=== PATIENT | female | born 2000 | race Caucasian/White ===

== ENCOUNTER 2023-12-22 14:04 | Outpatient (AMB) | payer OTHER, SELFPAY ==
--- NOTE | 2023-12-22 14:13 | MHC.OFFVIS ---
Vital Signs 12/22/23 14:20 Height 5 ft Weight 127 lb 2 oz BMI 24.8 BP 133/89 Blood Pressure Location Lt brachial Position Sitting Pulse 80 Intake Visit Reasons: (R) Breast density Intake Note: Patient is seen in office for evaluation and treatment of right breast density. Pt c/o: notice a lump on the right breast couple months, denies pain, increase/decrease, discharge, redness, discoloration, had similar lump on the left side had bx done it was benign us b:12/16/23 ([facility]) Supervisor Cabinetmaker Required: No Accompanied by: Self / Same As Patient Allergies No Known Allergies Allergy (Verified 12/22/23 14:15) Medication List - Last Reconciled 12/22/23 by Irvin Moser MD No Known Home Meds HPI Comments Details: 23-year-old female patient presenting for evaluation of a right breast lump noted on self examination. She has a previous history of a left breast lump which was biopsied several years ago by ultrasound. This revealed a benign fibroadenoma. The current lump has a similar feel and is located at 11:00 o'clock position, 2 cm from the nipple in his felt to be mobile. She denies any pain, skin change, nipple discharge or other symptoms related to this lump. She continues to feel the lump on the left breast as well which has not changed significantly. Her family history is significant for her mom having multiple breast lumps all of which were benign. She reports a maternal aunt was diagnosed with breast cancer and subsequently required a mastectomy. She was approximately 49 years old the diagnosis. Her menarche was the age of 11; she is G0. [facility] Family History Paternal Grandmother Leukemia Maternal Grandmother Lung cancer Maternal Aunt Breast cancer, Onset Age: 50 Social History Alcohol intake: current Patient Tobacco Use Status: Never used Tobacco Female Reproductive History Menstrual Age of Menarche: 11 Date of last menstrual period: 12/08/23 Total pregnancies: 0 Review of Systems Const All systems reviewed & are unremarkable except as noted in HPI and below Physical Exam Vital Signs: Last Vital Signs Pulse 80 12/22/23 14:20 BP 133/89 12/22/23 14:20 BMI result Body Mass Index 24.8 Const General: cooperative and no acute distress Nutritional Appearance: well nourished Orientation/consciousness: patient oriented x3 Limitations: no limitations HEENT Head: Yes normocephalic and Yes atraumatic Ears: hearing grossly normal bilaterally Chest Other: Left breast: No skin change, no nipple retraction, no nipple discharge, palpable mass in the 06:00 o'clock location, mobile within the breast tissue consistent with a fibroadenoma, no enlarged lymph nodes. Right breast: No skin change, no nipple retraction, no nipple discharge, palpable mass in the 11 o'clock position, 2 cm from the nipple, a proximally 1 cm in diameter. The lesion is mobile within the breast tissue with no overlying skin change. No enlarged lymph nodes Chest/axillae images: 1. Palpable mass right breast 11:00 o'clock Resp Effort & Inspection: normal respiratory effort, no audible wheezes, no cough and no respiratory distress Cardio Jugular venous distension: no JVD GI Inspection: Yes normal to inspection Skin Other: Warm, dry, no rash Neuro General: patient oriented x3 Extrem General: Yes no clubbing, cyanosis or edema Assessment & Plan Assessment & Plan (1) Abnormal ultrasound of breast: Code(s): R92.8 - Other abnormal and inconclusive findings on diagnostic imaging of breast Category: Medical Plan 23-year-old female presenting with a previous history of fibroadenoma of the left breast now with a new palpable mass in the right breast as noted above. On examination of the lump does appear to be consistent with a fibroadenoma. I recommended a right breast ultrasound-guided core biopsy. [facility] She will return following the procedure to review the pathology results and discuss treatment options. She is welcome to call sooner for any new concerns. Orders: Orders US breast ndl core biopsy RT Today R92.8 - Other abnormal and inconclusive findings on diagnostic imaging of breast Coding Level of Care Code New Pt Level 4 (67815) Diagnoses Abnormal ultrasound of breast R92.8
[2023-12-22 14:20] VITALS: BP 133/89; PULSE 80; BMI 24.8
== END 2023-12-22 14:30 | disposition home or self-care (01) ==
PROVIDERS: PCP Physician Assistant; Visit Provider Surgery
DX: R92.8 Other abnormal and inconclusive findings on diagnostic imaging of breast (principal)
CPT/HCPCS: 99204

== ENCOUNTER → 2023-12-22 14:04 | Outpatient (BNVA) | payer OTHER, SELFPAY | PROVIDERS: PCP Physician Assistant; Visit Provider Surgery ==

== ENCOUNTER 2024-01-13 07:53 | Outpatient (REF) | payer OTHER, SELFPAY ==
--- NOTE | ~2024-01-13 | US_ITS ---
PROCEDURE: US GUIDED BREAST BIOPSY, RIGHT CLINICAL INFORMATION: Oval mass right breast 11:00 axis, 2 cm from the nipple, probable fibroadenoma, recommended for biopsy. COMPARISON: 09/01/2023 right breast ultrasound at [facility]. PROCEDURAL DETAILS: The details of the procedure, as well as the risks, benefits, and alternatives to the procedure were explained to the patient in detail and all of her questions were answered, after which written informed consent was obtained. Site and side were confirmed. Prior to the procedure, sonography revealed an oval hypoechoic lobular mass measuring 0.9 x 0.5 x 1.2 cm 11:00 axis right breast, 2 cm from the nipple.. A time-out was performed, the lesion intended for biopsy was targeted, and the overlying skin of the right breast was then marked, prepped and draped in the usual sterile fashion. Using sonographic guidance, sterile technique, and 1% lidocaine without epinephrine for local anesthesia, multiple core biopsies were obtained through the targeted area with a 14G spring loaded Letsgofordinnerera core biopsy device. There was real-time confirmation of appropriate needle passage. Sampling was documented. At the completion of tissue sampling, a single open coil metallic clip was deposited at the biopsy site. There was no evidence of immediate complication. SPECIMEN: 3 well formed core samples were obtained DIGITAL POST-PROCEDURE MAMMOGRAPHY: -Not performed due to patient age. Clip appears well situated on within the lesion on ultrasound. US/US breast ndl core biopsy RT IMPRESSION: 1. No immediate complication from ultrasound-guided percutaneous biopsy right breast 11:00 axis oval mass. 2. Ultrasound was used to localize and guide marker clip placement. 3. Final pathology results are pending. A separate report with final recommendations will be issued once these results are made available.
[2024-01-13] MEDS: Lidocaine HCl 1 % 20 ML VIAL 9 ML SUBCUT (09:05)
[2024-01-13] MEDS: Sodium Bicarbonate 8.4% 50 MEQ/50 ML VIAL SUBCUT (09:05)
== END 2024-01-13 07:54 | disposition home or self-care (01) ==
LOC: HO.MAMMO 07:53
PROVIDERS: PCP Physician Assistant; Visit Provider Surgery
DX: D24.1 Benign neoplasm of right breast (principal)
CPT/HCPCS: 19083; 88305; A4648; C1894

== ENCOUNTER → 2024-01-13 08:00 | Outpatient (BNV) | payer OTHER, SELFPAY | PROVIDERS: PCP Physician Assistant; Visit Provider Radiology Diagnostic Radiology | DX: N63.11 Unspecified lump in the right breast, upper outer quadrant (principal) | CPT/HCPCS: 19083 ==

== ENCOUNTER 2024-08-19 07:41 | Outpatient (AMB) | payer OTHER, SELFPAY ==
--- OUTSIDE RECORDS SUMMARY | 2024-08-19 07:43 | XMS_ITS | Clinical Summary ---
Author Organization [facility] Address [address] [facility] [place] [address] Care Team Providers Care Land Surveyor Manager Name Role Phone Unavailable Primary Care Provider Unavailabl e Social History Tobacco Use Types Packs/Day Years Used Date Smoking Tobacco: Never Assessed Comments Unknown Sex and Gender Information Value Date Recorded Sex Assigned at Not on file Legal Sex Female 10:00 AM EST Gender Identity Not on file Sexual Orientation Not on file Plan of Treatment Health Maintenance Due Date Last Done Comments Depression: Screening Annual ly using PHQ-2/9 in Adults 18 yrs or above (or HM Modifier)([facility]) 2018 Hepatitis C Virus Infection in Adolescents and Adults: Screening (or Modifier) ([facility]) 2018 SDOH Screening Reminder: Ellie pineda for all adults ([facility]) 2018 Tobacco Smoking Cessation: i n Adults excluding Women: Behavioral and Pharmacotherapy Interventions ([facility]) 2018 DTaP/Tdap/Td Vaccines ([facility]) (1 - Tdap) 2019 Lipid Screening: Once for Wo men aged 20 to 45 yrs ([facility]) 2020 Cervical Cancer Screenin 1-65 yrs of age (or Modifier) 2021 Cervical Cancer Screening: P ap every 3 yrs pts age 21-65 2021 Cervical Cancer: Pap Screeni ng with Modifier timing ([facility]) 2021 Cervical Cancer: hrHPV alone or with cotesting Pap for Pts 30-65yrs screening every 5yrs ([facility]) 2021 Flu Vaccination: Yearly for ages 18mos through 64 years (or Modifier)([facility]) 01/28/2024 COVID-19 Vaccine Screening: Initial Series and Booster Status ([facility]) (2023- season) 2024 Zoster/Shingles Vaccine Seri es Screening: Adults aged 18+ yrs (or HM Modifiers)([facility]) (1 of 2) 2050 Pneumococcal Vaccination Scr eening: Pts 0-19 & 19-64 yrs of age ([facility]) Aged Out No longer eligible based on patient's age to complete this topic Medical Devices Not on file
[2024-08-19 07:55] VITALS: BP 110/62; PULSE 78; O2SAT 98; BMI 25.8
--- NOTE | 2024-08-19 07:55 | A.OFFPC_ITS ---
Vital Signs 08/19/24 07:55 Height 5 ft Weight 132 lb BMI 25.8 BP 110/62 Blood Pressure Location Lt brachial Position Sitting Pulse 78 Pulse Source Pulse Oximeter Pulse Oximetry (%) 98 Oxygen Delivery Method Room Air Intake Visit Reasons: establish care Signal Circuit Designer Required: No Allergies No Known Allergies Allergy (Verified 08/19/24 08:10) Medication List - Last Reconciled 08/19/24 by Yanni Villalba PA-C No Known Home Meds Tobacco use date assessed: 08/19/24 Dental Screening Dental Screen Date: 08/19/24 Did you have a dental visit in the last 12 months?: Yes Did you have a dental problem in the last 6 months where you did not have access to dental care?: No Was dental information given to patient?: Patient has dentist HPI establish care HPI Details 24-year-old female coming to the office for the 1st time. In review of the notes, patient had abdominal ultrasound of the breast an appointment with General surgery 12/22/2023 who recommended core biopsy. Biopsy was completed 12/2023 determined to fibroadenoma no evidence of malignancy. She has a history of a benign breast lump following an abnormal ultrasound and biopsy conducted approximately a year ago is noted. The lump persists without associated pain. She has perioral dermatitis managed previously with doxycycline and is to follow up with her nipple threader. The patient denies any history of significant medical conditions such as asthma, hypertension, or diabetes. [facility] Family History Paternal Grandmother Leukemia Maternal Grandmother Lung cancer Maternal Aunt Breast cancer, Onset Age: 50 Mother No problems noted. Father No problems noted. Sister No problems noted. Social History Housing: Other Housing Other:: Home with parents Alcohol intake: current Patient Tobacco Use Status: Never used Tobacco Tobacco use type: Cigarette e-Cigarette/Vaping Use: Never Used Second Hand Smoke Exposure: No Current occupational status: employed Current occupation: Marketing Cognitive needs: No Hearing needs: No Vision needs: No Female Reproductive History Menstrual Age of Menarche: 11 control method: none Total pregnancies: 0 History of abnormal pap smear: No Questionnaire PHQ-9 Over the last 2 weeks, how often have you been bothered by any of the following problems? 1. Little interest or pleasure in doing things: not at all 2. Feeling down, depressed, or hopeless: not at all 3. Trouble falling or staying asleep, or sleeping too much: not at all 4. Feeling tired or having little energy: not at all 5. Poor appetite or overeating: not at all 6. Feeling bad about yourself - or that you are a failure or have let yourself or your family down: not at all 7. Trouble concentrating on things, such as reading the newspaper or watching television: not at all 8. Moving or speaking so slowly that other people could have noticed. Or the opposite - being so fidgety or restless that you have been moving around a lot more than usual: not at all 9. Thoughts that you would be better off or of hurting yourself in some way: not at all Total score: 0 Depression Screening Interpretation: Negative Depression Screening Done: Yes 07328 - PHQ-9 Billing: Yes Source: Developed by Drs. Dickson Fuentes, Maite Galan, Nabeel Beckman and colleagues, with an educational fran from [employer]. Thrive Questionnaire Date Thrive assessed: 08/19/24 I am a: Patient What is your living situation today?: I have a steady place to live Within the past 12 months, did the food you bought not last and you didn't have the money to get more?: Never true Within the past 12 months, did you worry whether your food would run out before you got money to buy more?: Never true Do you have trouble paying for medicines?: No Do you have trouble getting transportation to medical appointments?: No Do you have trouble paying your heating and electricity bill?: No Do you have trouble taking care of your child, family member or friend?: No Do you have trouble with day-to-day activities such as bathing, preparing meals, shopping, managing finances, etc.?: No Are you currently unemployed and looking for a job?: No Are you interested in more education?: No Please select the resources that you would like help with: None Currently or been in a relationship where the following occur: No concerns reported THRIVE Score: 0 AUDIT C Alcohol Use Questionnaire (AUDIT-C) 1. How often do you have a drink containing alcohol?: 2-3 times a week 2. How many drinks containing alcohol do you have on a typical day when you are drinking?: 1 or 2 3. How often do you have six or more drinks on one occasion?: Never Total Score: 3 CARROLL-7 AMB Questionnaire CARROLL-7 Date CARROLL - 7 assessed: 08/19/24 Feeling nervous, anxious, or on edge: 0 = Not at all Not being able to stop or control worryin = Not at all Worrying too much about different things: 0 = Not at all Trouble relaxin = Not at all Being so restless that it is hard to sit still: 0 = Not at all Becoming easily annoyed or irritable: 0 = Not at all Feeling afraid as if something awful might happen: 0 = Not at all Total CARROLL-7 score (0-4 normal; 5-9 mild; 10-14 moderate; 15-21 severe): 0 Source: Developed by Drs. Dickson Fuentes, Maite Galan, Nabeel Beckman and colleagues, with an educational fran from [employer]. Review of Systems Const Denies body aches, Denies chills, Denies fever(s), Denies headache(s) and Denies poor appetite Eyes Reports no additional complaints ENT Denies dysphagia, Denies dizziness, Denies headache(s) and Denies odynophagia Card Denies chest pain, Denies syncope, Denies edema, Denies irregular heart rhythm, Denies lightheadedness and Denies dyspnea Resp Denies cough and Denies dyspnea GI Denies abdominal pain, Denies constipation, Denies dysphagia, Denies diarrhea, Denies nausea, Denies odynophagia and Denies vomiting Reports no additional complaints Musc Reports no additional complaints and Denies abnormal gait Skin/Breast Reports system reviewed and no additional complaints, except as documented Neuro Denies abnormal gait, Denies dizziness, Denies syncope and Denies headache(s) Psych Reports no additional complaints Physical exam (Primary Care) Vital Signs: Last Vital Signs Pulse 78 08/19/24 07:55 BP 110/62 08/19/24 07:55 Pulse Ox 98 08/19/24 07:55 Oxygen Delivery Method Room Air 08/19/24 07:55 BMI result Body Mass Index 25.8 Tobacco/Smoking Status: Tobacco use Status Tobacco use date assessed 08/19/24 08/19/24 08:01 Patient Tobacco Use Status Never used Tobacco 08/19/24 07:55 Tobacco use type Cigarette 08/19/24 08:01 e-Cigarette/Vaping Use Never Used 08/19/24 08:01 PHQ-9: PHQ-9 Score PHQ-9: Total score 0 08/19/24 08:01 Depression Screening Interpretation: Negative Thrive Assessment: Date of Thrive Assessment Date Thrive assessed 08/19/24 08/19/24 08:01 Currently or been in a relationship where the following occur: No concerns reported Const General: cooperative, healthy appearing, comfortable and no acute distress Orientation/consciousness: patient oriented x3 HENMT Head: Yes normocephalic Ears: hearing grossly normal bilaterally General nose exam: Normal external nose present Face and sinus: Yes normal facial exam and Yes sinuses nontender Mouth: Normal oral and palatal mucosa present and tongue normal Throat: Yes posterior oropharynx normal Eyes General: appearance normal, both eyes and all related structures Conjunctivae: conjunctivae normal Pupils: Equal, round and reactive pupils present EOM: EOMs intact bilaterally and No Nystagmus present Neck Neck: Yes full ROM and Yes no lymphadenopathy Chest Chest palpation & inspection: normal inspection of the chest Resp Effort & Inspection: normal respiratory effort Auscultation: clear to auscultation bilaterally, no crackles, no rales, no rhonchi and no wheezes Cardio Rate: regular rate Rhythm: regular rhythm Peripheral pulses: radial pulses present and dorsalis pedis present GI Inspection: Yes normal to inspection and No Abdominal wall edema Palpation (GI): Soft to palpation, not firm and nontender Auscultation: normal bowel sounds Rectal Exam - Female: deferred General: Yes no CVA tenderness Back/Spine/Pelvis Back: no CVA tenderness Skin General skin exam: no rashes or lesions noted Neuro General: patient oriented x3 Cranial nerves: Yes Equal, round and reactive pupils present, Yes Midline tongue present, Yes Ability to bilaterally elevate shoulders present and No Nystagmus present Gait exam (Neuro): Normal gait present Extrem General: Yes normal to inspection, Yes full ROM and No edema Psych Speech and movement: Normal speech and movement present Affect: normal affect Attitude: cooperative Insight: Good insight present (Psych) Judgement: Good judgement present (Psych) Coding Level of Care Code New Pt Prev Care 18-39yr([id number] Diagnoses Fibroadenoma of right breast D24.1 Laterality: right Perioral dermatitis L71.0 Annual physical exam Z00.00 Additional Codes PHQ-9 - 81216 - PHQ-9 Billing: Yes ([id number]) Assessment & Plan Assessment & Plan (1) Fibroadenoma: Code(s): D24.9 - Benign neoplasm of unspecified breast Category: Medical Qualifiers: Laterality: right Qualified Code(s): D24.1 - Benign neoplasm of right breast Plan: Patient having history of fibroadenoma right breast denies any symptoms time continue to monitor (2) Perioral dermatitis: Code(s): L71.0 - Perioral dermatitis Category: Medical Plan: Currently following with Dermatology just completed course of oral doxycycline and feels symptoms have improved (3) Annual physical exam: Code(s): Z00.00 - Encounter for general adult medical examination without abnormal findings Category: Medical Plan: Blood work has been requested for a comprehensive health assessment, and a referral to a satellite specialist has been provided for ongoing women's health screenings. The patient has been counseled on returning for any new symptoms or concerns, while her decision to forego the flu vaccination at this time is respected. She remains informed of the need for regular health maintenance. Plan Patient was informed and verbally consented to the use of an ambient scribe for clinic note documentation during this visit. This note was constructed using voice recognition software. While every effort has been made to ensure accuracy and instant potato processor, still areas may have been included sometimes these areas may affect the content or meeting of the given symptoms. Total time spent caring for the patient today was 30 minutes. This includes time spent before the visit reviewing the chart, time spent during the visit, and time spent after the visit and documentation. Orders: Orders Complete Blood Count Auto Diff Today Z00.00 - Encounter for general adult medical examination without abnormal findings Comprehensive Met. Panel Today Z00.00 - Encounter for general adult medical examination without abnormal findings Free T4 (Free Thyroxine) Today Z00.00 - Encounter for general adult medical examination without abnormal findings Vitamin B12 and Folate Today Z00.00 - Encounter for general adult medical examination without abnormal findings Vitamin D 25-OH Total Today Z00.00 - Encounter for general adult medical examination without abnormal findings TSH reflex Free T4 Today Z00.00 - Encounter for general adult medical examination without abnormal findings Referrals GERIATRIC CARE MANAGER Referral Z12.4 - Encounter for screening for malignant neoplasm of cervix
== END 2024-08-19 08:20 | disposition home or self-care (01) ==
PROVIDERS: PCP Physician Assistant
DX: D24.1 Benign neoplasm of right breast (principal); L71.0 Perioral dermatitis; Z00.00 Encounter for general adult medical examination without abnormal findings

== ENCOUNTER → 2024-08-19 07:41 | Outpatient (BNVA) | payer OTHER, SELFPAY | PROVIDERS: PCP Physician Assistant | DX: Z76.89 Persons encountering health services in other specified circumstances (principal); D24.1 Benign neoplasm of right breast; L71.0 Perioral dermatitis | CPT/HCPCS: 96127 ==

== ENCOUNTER 2024-08-27 10:28 | Outpatient (REF) | payer OTHER, SELFPAY ==
--- OUTSIDE RECORDS SUMMARY | 2024-08-27 10:31 | XMS_ITS | Clinical Summary ---
Author Organization [facility] Address [address] [facility] [place] [address] Care Team Providers Care Forging Dies Final Finisher Name Role Phone Unavailable Primary Care Provider [...] Adults 18 yrs or above (or HM Modifier)([facility]) 2018 Hepatitis C Virus Infection in Adolescents and Adults: Screening (or Modifier) ([facility]) 2018 SDOH Screening Reminder: Ellie pineda for all adults ([facility]) 2018 Tobacco Smoking Cessation: i n Adults excluding Women: Behavioral and Pharmacotherapy Interventions ([facility]) 2018 DTaP/Tdap/Td Vaccines ([facility]) (1 - Tdap) 2019 Lipid Screening: Once for Wo men aged 20 to 45 yrs ([facility]) 2020 Cervical Cancer Screenin 1-65 yrs of age (or Modifier) 2021 Cervical Cancer Screening: P ap every 3 yrs pts age 21-65 2021 Cervical Cancer: Pap Screeni ng with Modifier timing ([facility]) 2021 Cervical Cancer: hrHPV alone or with cotesting Pap for Pts 30-65yrs screening every 5yrs ([facility]) 2021 Flu Vaccination: Yearly for ages 18mos through 64 years (or Modifier)([facility]) 01/28/2024 COVID-19 Vaccine Screening: Initial Series and Booster Status ([facility]) (2023- season) 2024 Zoster/Shingles Vaccine Seri es Screening: Adults aged 18+ yrs (or HM Modifiers)([facility]) (1 of 2) 2050 Pneumococcal Vaccination Scr eening: Pts 0-19 & 19-64 yrs of age ([facility]) Aged Out No longer eligible based on patient's age to complete this topic Medical Devices Not on file
[2024-08-27 10:46] LABS: MANUAL DIFF FLAG NO
[2024-08-27 11:09] LABS: Basophils Absolute Auto 0.1 X10*3/uL (0.0-0.2); Basophils Percent Auto 0.7 % (0-2); Eosinophils Absolute Auto 0.1 X10*3/uL (0.0-0.4); Eosinophils Percent Auto 0.7 % (0-4); Hematocrit 43.5 % (37.0-47.0); Hemoglobin 14.8 g/dl (12.0-16.0); Imm Gran Abs Auto 0.03 X10*3/uL (0.00-0.03); Imm Gran Pct Auto 0.4 % (0.0-0.4); Lymphocytes Absolute Auto 1.9 X10*3/uL (1.2-4.9); Lymphocytes Percent Auto 26.2 % (20-40); Mean Corpuscular Volume 94.2 fL (80.0-98.0); Mean Platelet Volume 8.9 fL (9.4-12.3); Monocytes Absolute Auto 0.8 X10*3/uL (0.1-1.2); Monocytes Percent Auto 10.7 % (2-11); Neutrophils Absolute Auto 4.6 x10*3/uL (2.0-8.3); Neutrophils Percent Auto 61.3 % (45-73); Platelet Count 335 X10*3/uL (160-400); Red Blood Count 4.62 X10*6/uL (4.20-5.50); Red Cell Distribution Width 11.6 % (11.0-16.0); White Blood Count 7.4 X10*3/uL (4.8-10.8)
[2024-08-27 12:08] LABS: Alanine Aminotransferase 22 U/L (0-31); Albumin Level 4.8 g/dL (3.5-5.0); Alkaline Phosphatase 62 U/L (39-117); Anion Gap 12 (12-20); Aspartate Amino Transferase 20 U/L (5-31); Bilirubin Total 0.5 mg/dL (0.0-1.0); Blood Urea Nitrogen 11 mg/dL (9-16); Carbon Dioxide 25 mmol/L (22-29); Chloride 106 mmol/L (96-108); Estimated Glomerular Filt Rate > 60; Glucose Random 77 mg/dL (60-115); Potassium 4.3 mmol/L (3.3-5.1); Sodium 139 mmol/L (135-145); Total Protein 8.8 g/dL (6.5-8.0)
[2024-08-27 12:32] LABS: Folate 15.2 ng/mL (> or = 4.0); Vitamin B12 1055 pg/mL (200-900)
[2024-08-27 12:34] LABS: Free T4 (Free Thyroxine) 0.95 ng/dL (0.71-1.85); TSH reflex Free T4 1.05 uIU/mL (0.32-4.0); Vitamin D 25-OH Total 67.5 ng/mL (>30)
== END 2024-08-27 10:29 | disposition home or self-care (01) ==
LOC: HO.LAB 10:28
DX: Z00.00 Encounter for general adult medical examination without abnormal findings (principal); Z13.29 Encounter for screening for other suspected endocrine disorder; Z13.228 Encounter for screening for other metabolic disorders; Z13.0 Encounter for screening for diseases of the blood and blood-forming organs and certain disorders involving the immune mechanism
CPT/HCPCS: 36415; 80053; 82306; 82607; 82746; 84439; 84443; 85025

== ENCOUNTER 2025-06-05 09:38 | Outpatient (AMB) | payer OTHER, SELFPAY ==
--- NOTE | 2025-06-05 09:46 | A.OFFVIS_ITS ---
Vital Signs 3 06/05/25 09:55 Height 5 ft Weight 118 lb 6 oz BMI 23.1 BP 180/77 H Blood Pressure Location Lt brachial Position Sitting Pulse 81 Intake Visit Reasons: new lump in breast Intake Note: Patient is seen in office for evaluation of a new lump on the breast. Pt c/o: feels a lump on the right breast towards the axilla for a month, denies redness, pain, discharge, had 2 prior breast bx Left bottom breast & middle top right breast (benign) L.OV:12/21/24 Arabic Linguist Required: No Linux Vmware Administrator: Linux Vmware Administrator Present Accompanied by: Self / Same As Patient Allergies doxycycline Adverse Reaction (Mild, Verified 06/05/25 09:54) upset stomach HPI Comments Details: 25-year-old female patient returning for evaluation of a new right breast lump. She has a prior history of bilateral biopsy confirmed fibroadenoma now presenting with a grape sized lump in the right breast noted in the outer portion of the right breast. She denies any pain, redness or other symptoms associated with this lump. Patient's family history is significant for a maternal aunt with breast cancer and possibly a paternal aunt with breast cancer. Menarche was at 11, she is G0. PFSH Surgical History Hx of tonsillectomy Family History Paternal Grandmother Leukemia Maternal Grandmother Lung cancer Maternal Aunt Breast cancer, Onset Age: 50 Mother No problems noted. Father No problems noted. Sister No problems noted. Paternal Aunt Breast cancer Social History Housing: Other Housing Other:: Home with parents Alcohol intake: current Patient Tobacco Use Status: Never used Tobacco Tobacco use type: Cigarette e-Cigarette/Vaping Use: Never Used Second Hand Smoke Exposure: No Current occupational status: employed Current occupation: Marketing Cognitive needs: No Hearing needs: No Vision needs: No Female Reproductive History Menstrual Age of Menarche: 11 Total pregnancies: 0 Review of Systems Const All systems reviewed & are unremarkable except as noted in HPI and below Physical Exam Const General: cooperative and no acute distress Nutritional Appearance: well nourished Orientation/consciousness: patient oriented x3 Limitations: no limitations HEENT Head: Yes normocephalic and Yes atraumatic Ears: hearing grossly normal bilaterally Chest Other: Left breast: No skin change, no nipple retraction, no nipple discharge, palpable mass in the 08:00 o'clock location, mobile within the breast tissue consistent with a fibroadenoma, no enlarged lymph nodes. Right breast: No skin change, no nipple retraction, no nipple discharge, palpable mass in the 9 o'clock position approximately 8 cm from the nipple, mobile within the breast tissue approximately 1.5 cm in diameter as well the previously identified, biopsy proven fibroadenoma in the 11 o'clock position, 2 cm from the nipple, a proximally 1 cm in diameter. The lesion is mobile within the breast tissue with no overlying skin change. No enlarged lymph nodes. New breast lump is most consistent with a fibroadenoma. Chest/axillae images: 2 1. New palpable lump 9 o'clock position approximately 8 cm from the nipple 2. Previous biopsy proven fibroadenoma right breast Resp Effort & Inspection: normal respiratory effort, no audible wheezes, no cough and no respiratory distress Cardio Jugular venous distension: no JVD GI Inspection: Yes normal to inspection Skin Other: Warm, dry, no rash Neuro General: patient oriented x3 Extrem General: Yes no clubbing, cyanosis or edema Assessment & Plan Assessment & Plan (1) Fibroadenoma: Code(s): D24.9 - Benign neoplasm of unspecified breast Category: Medical Qualifiers: Laterality: right Qualified Code(s): D24.1 - Benign neoplasm of right breast Plan Patient presents with a new larger probable fibroadenoma in the right breast at the 9 o'clock position. There are no symptoms associated with this new lump. I recommended further evaluation with breast ultrasound as well as follow up examination of the other previously diagnosis fibroadenoma. I will call her with the results once they are available. Orders: Orders 2 US breast RT limited Today D24.1 - Benign neoplasm of right breast US breast LT limited Today D24.1 - Benign neoplasm of right breast Coding Level of Care Code Est Pt Level 3 (93441) Diagnoses Fibroadenoma of right breast D24.1 Laterality: right
[2025-06-05 09:55] VITALS: BP 180/77; PULSE 81; BMI 23.1
== END 2025-06-05 10:10 | disposition home or self-care (01) ==
LOC: HO.HGS 09:39
PROVIDERS: Visit Provider Surgery
DX: D24.1 Benign neoplasm of right breast (principal)
CPT/HCPCS: 99213